=== PATIENT | female | born 1945 | race Caucasian/White ===

== ENCOUNTER 2024-10-01 10:14 | Outpatient (AMB) | payer MEDICARE, OTHER, SELFPAY ==
--- NOTE | 2024-10-01 10:21 | MHC.OFFVIS ---
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
[2024-10-01 10:27] VITALS: BP 129/58; PULSE 77; RESP 16; TEMP 36.7; O2SAT 97; BMI 22.2
--- NOTE | 2024-10-01 10:34 | AM.OFFWIN_ITS ---
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 Her coughing worsened this morning. She notes history of multiple bronchiectasis. She notes intermittent burning with urination for the past 2 weeks. She denies frequency, hesitancy, or discharge with urination. No fever, chills, body aches, fatigue, or weakness. She has not taken any medication for her symptoms. The only medication she is on fosamax weekly. She denies six contacts. [facility] Social History Patient Tobacco Use Status: Never used Tobacco Review of Systems Const Details: Denies chills, Denies fatigue, Denies fever(s), Denies headache(s) and Denies weakness Cardiac Denies chest pain, Denies claudication, Denies leg edema, Denies lightheadedness, Denies palpitations, Denies dyspnea, Denies dyspnea on exertion, Denies orthopnea and Denies other (Loss of consciousness) Resp Denies cough, Denies excessive phlegm production, Denies dyspnea, Denies dyspnea on exertion, Denies snoring and Denies wheezing Reports as per HPI Physical Exam Vital Signs: Last Vital Signs Temp 98.1 F 10/01/24 10:27 Pulse 77 10/01/24 10:27 Resp 16 10/01/24 10:27 BP 129/58 L 10/01/24 10:27 Pulse Ox 97 10/01/24 10:27 Oxygen Delivery Method Room Air 10/01/24 10:27 BMI result Body Mass Index 22.2 Const Other: General: comfortable and no acute distress Orientation/consciousness: patient oriented x3 Chest Chest palpation & inspection: normal inspection of the chest Resp Auscultation: clear to auscultation bilaterally Cardiac Palpation: normal PMI Heart sounds: S1 normal heart sound present, S2 normal heart sound present, no gallops, no murmur, no rubs ENT Head is normocephalic Bilateral ear canal and TM are normal Nasal turbinates and oropharynx are pink and moist Sinuses are nontender with palpation No auricular or cervical lymphadenopathy No CVA tenderness Results AMB Urinalysis, Automated UA Leukoctes 2 Ruth/uL Last Edit by Xenia Heredia on 10/01/24 11:05 UA Nitrite Negative Last Edit by Xenia Heredia on 10/01/24 11:05 UA Urobilinogen 0 mg/dL Last Edit by Xenia Heredia on 10/01/24 11:05 UA Protein 0 mg/dL Last Edit by Xenia Heredia on 10/01/24 11:05 UA pH 6.0 Last Edit by Xenia Heredia on 10/01/24 11:05 UA Blood 1 Adam/uL Last Edit by Xenia Heredia on 10/01/24 11:05 UA Specific [place] 1.010 Last Edit by Xenia Heredia on 10/01/24 11:05 UA Ketone Negative Last Edit by Xenia Heredia on 10/01/24 11:05 UA Bilirubin 0 mg/dL Last Edit by Xenia Heredia on 10/01/24 11:05 UA Glucose 0 mg/dL Last Edit by Xenia Heredia on 10/01/24 11:05 Assessment & Plan Assessment & Plan (1) Viral upper respiratory illness: Code(s): J06.9 - Acute upper respiratory infection, unspecified Plan: Likely viral illness though possibly allergies. No exam evidence of bacterial infection Viral illness There is no antibiotic medication for viruses.? They must run their course.? Most average 5-7 days but 7-10 days is not uncommon and up to 14 days is still possible.? A cough is often the last symptom to resolve and this can last for weeks in some cases. Rest Hydrate well -? Drink plenty of fluids.? Especially water. Tylenol or ibuprofen for muscle aches, headache, fever/discomfort Zyrtec and benzonatate as prescribed for allergies and cough respectively Cannot rule out COVID-19/RSV/Flu infection Nasal swab acquired and will be sent to the lab Return for new or worsening symptoms Verbalized understanding and agreed with treatment plan. (2) Dysuria: Code(s): R30.0 - Dysuria Plan: Urine dip revealed a RBCs and WBCs. UTI is likely. Macrobid as prescribed. May take Tylenol or ibuprofen as needed for pain or discomfort. Will send urine to the lab for culture and sensitivity. Will make changes as needed. Verbalized understanding and agreed with treatment plan. Orders: Orders SARS-CoV2/FLU/RSV Today J06.9 - Acute upper respiratory infection, unspecified AMB Urinalysis Automated Today Z13.9 - Encounter for screening, unspecified UA CC w/rflx Micro + Cult Today R30.0 - Dysuria Medications: New benzonatate 100 mg PO BID PRN 10 caps 0RF cough nitrofurantoin monohyd/m-cryst 100 mg (Macrobid) must administer with a meal/food 100 mg PO Q12H 3 days 6 caps 0RF cetirizine 10 mg PO DAILY 30 days 30 tabs 0RF Coding Level of Care Code New Pt Level 3 (81713) Diagnoses Viral upper respiratory illness J06.9 Dysuria R30.0
== END 2024-10-01 11:46 | disposition home or self-care (01) ==
LOC: HO.HMCWIW 10:14
PROVIDERS: PCP Nurse Practitioner Family; Visit Provider Nurse Practitioner Family
DX: J06.9 Acute upper respiratory infection, unspecified (principal); R30.0 Dysuria; Z13.9 Encounter for screening, unspecified

== ENCOUNTER 2024-10-01 10:14 | Outpatient (REF) | payer MEDICARE, OTHER, SELFPAY ==
[2024-10-01 14:45] LABS: Appearance Urine Clear; Color Urine Yellow; Glucose Urine UA Negative (Negative); Leukocyte Esterase Urine Large (3+) (Negative); Nitrite Urine Negative (Negative); Specific Gravity - Urine <= 1.005 (1.005-1.025); UMIC TRIGGER UACC YES; Urine Blood Small (1+) (Negative); Urine Ketones Negative (Negative); Urine Protein Negative (Neg-Trace)
[2024-10-01 14:56] LABS: Bacteria Urine 4+ (None Seen); Hyaline Casts Urine 0-2 /LPF (0-2); RBC Urine 0-2 /HPF (0-2); Squamous Epithelial Cell Urine 0-2 /HPF (0-2); UACC Culture Trigger YES; WBC Clumps Urine Present; WBC Urine >50 /HPF (0-5)
[2024-10-01 15:39] LABS: Influenza A PCR NEGATIVE (Negative); Influenza B PCR NEGATIVE (Negative); Resp Syncy Virus RNA Qual PCR NEGATIVE (Negative); SARS COV2 PCR INHOUSE NEGATIVE (Negative)
== END 2024-10-01 10:15 | disposition home or self-care (01) ==
LOC: HO.LAB 10:14
PROVIDERS: PCP Nurse Practitioner Family; Visit Provider Nurse Practitioner Family
DX: J06.9 Acute upper respiratory infection, unspecified (principal); R30.0 Dysuria
CPT/HCPCS: 0241U; 81001; 81003; 87086; 87088; 87186; 99202